=== PATIENT | female | born 1985 | race Caucasian/White ===

== ENCOUNTER 2019-03-26 21:19 | Emergency (ER) | payer BC ==
[~2019-03-26] VITALS: Ht 162.6 cm; Wt 117.9 kg
[~2019-03-26 21:19] MED LIST: Bactrim Ds Tab1 EACH PO; HYDACE5325 PO; IBUP800 PO
[2019-03-26 22:06] LABS: Source, Urine Clean Catch
[2019-03-26 22:16] LABS: Bilirubin, Urine Neg (Neg); Blood, Urine 5+ (Neg); Glucose Qualitative, Urine Neg (Neg); Ketones, Urine Neg (Neg); Leukocyte Esterase, Urine 3+ (Neg); Nitrite, Urine Neg (Neg); Protein, Urine 2+ (Neg); Urobilinogen, Urine NORM (Normal)
[2019-03-26 22:22] LABS: Appearance, Urine Hazy (Clear); Color, Urine Pale Yellow (P-Yellow)
[2019-03-26 22:23] LABS: Bacteria Mod /hpf; Squamous Epithelial Cells Not Seen /hpf (Few); White Blood Cells, Urine TNTC /hpf (0-5)
[2019-03-26] MEDS ORDERED: CEPH500 PO (22:58)
== END 2019-03-26 23:04 | disposition home or self-care (01) ==
LOC: ER 21:19
PROVIDERS: Emergency Medicine
DX: N39.0 Urinary tract infection, site not specified (principal)
CPT/HCPCS: 81001; 87077; 87086; 87186; 99284

== ENCOUNTER 2022-06-12 17:58 | Emergency (ER) | payer BC, OTHER ==
[~2022-06-12] VITALS: Ht 162.6 cm; Wt 136.1 kg
[~2022-06-12 17:58] MED LIST changes: +CEPH500 PO; +DOCU100 PO; +DULCOLAX400 MG/5 M PO; +IBUP400 PO; +PROM25 PO; +Percocet 5-3251 EACH PO; +SENN187 PO; +SIME80CH PO
== END 2022-06-12 18:35 | disposition home or self-care (01) ==
LOC: ER 17:58
DX: S81.832A Puncture wound without foreign body, left lower leg, initial encounter (principal); W26.9XXA Contact with unspecified sharp object(s), initial encounter
CPT/HCPCS: 90471; 90714; 99281-25